=== PATIENT | female | born 1955 | race Two or more races ===

== ENCOUNTER 2022-08-28 13:57 | Inpatient (IN) | payer BC, OTHER ==
[~2022-08-28] VITALS: Ht 160 cm; Wt 81.0 kg
[2022-08-28 15:15] VITALS: BP 139/91
[2022-08-28] MEDS ORDERED: GLUCOSE 4GM CHEW TABLET PO PRN (15:40)
[2022-08-28] MEDS ORDERED: MIRALAX *UNIT DOSE* 17GM PACKET PO PRN (15:40)
[2022-08-28] MEDS ORDERED: GLUCAGON INJ 1MG VIAL SC PRN (15:40)
[2022-08-28] MEDS ORDERED: DEXTROSE 50% 50 ML SYRINGE IV PRN (15:40)
[2022-08-28] MEDS ORDERED: ACETAMINOPHEN TAB 650MG DOSE (2X325MG) PO PRN (15:40)
[2022-08-28] MEDS ORDERED: ONDANSETRON 4MG ORAL DISINTEGRATING TAB SL PRN (15:40)
[2022-08-28] MEDS ORDERED: INSULIN LISPRO (NovoLOG) PER UNIT SC SCH (17:30)
[2022-08-28 20:00] VITALS: BP 130/84
[2022-08-28] MEDS ORDERED: FLON1SPR NARES (20:19)
[2022-08-28] MEDS ORDERED: DOCU100C16 PO (20:19)
[2022-08-28] MEDS ORDERED: ATOR40TA75 PO (20:19)
[2022-08-28] MEDS ORDERED: CARV6.25 PO (20:19)
[2022-08-28] MEDS ORDERED: DULO30CA9 PO (20:19)
[2022-08-28] MEDS ORDERED: BACL10TA2 PO (20:19)
[2022-08-28] MEDS ORDERED: EZET10TA21 PO (20:19)
[2022-08-28] MEDS ORDERED: GABA-282 PO (20:22)
[2022-08-28] MEDS ORDERED: GLIP5TAB8 PO (20:22)
[2022-08-28] MEDS ORDERED: LORA-622 PO (20:56)
[2022-08-28] MEDS ORDERED: heparin SC (20:56)
[2022-08-28] MEDS ORDERED: HYDR-643 PO (20:56)
[2022-08-28] MEDS ORDERED: INSUHUMDS SC ×2 (20:56→21:02)
[2022-08-28] MEDS ORDERED: INSU100V13 SQ (20:56)
[2022-08-28] MEDS ORDERED: VIMP100T PO (21:02)
[2022-08-28] MEDS ORDERED: KEPP1TAB PO (21:02)
[2022-08-28] MEDS ORDERED: SENN-80 PO (21:07)
[2022-08-28] MEDS ORDERED: EQL50TAB2 PO (21:07)
[2022-08-28] MEDS ORDERED: COCONUT OIL PO (21:07)
[2022-08-28] MEDS ORDERED: MIRA3350 PO (21:07)
[2022-08-28] MEDS ORDERED: OMEG10005 PO (21:07)
[2022-08-28] MEDS ORDERED: ONDA-83 PO (21:07)
[2022-08-28] MEDS ORDERED: med rec comment (21:09)
[2022-08-28] MEDS ORDERED: HOME MED LIST COMPLETE! XX SCH (21:10)
[2022-08-28] MEDS: LEVEMIR (INSULIN DETEMIR) 1 UNITS/0.01ML SC SCH (22:00)
[2022-08-28] MEDS: HEPARIN SOD (PORCINE) 5000UNITS/ML 1ML VIAL/SYRINGE SQ SCH (22:00)
[2022-08-28] MEDS: levETIRAcetam 250MG TABLET (KEPPRA) PO SCH (22:01)
[2022-08-28] MEDS: GABAPENTIN 300 MG CAP PO SCH (22:01)
[2022-08-28] MEDS: LACOSAMIDE 50 MG TAB (VIMPAT) PO SCH (22:02)
[2022-08-28] MEDS: DULoxetine 30MG CAPSULE (CYMBALTA) PO SCH (22:02)
[2022-08-28] MEDS: CARVedilol 6.25 MG TAB PO SCH (22:02)
[2022-08-28] MEDS: FLUTICASONE PROP 0.05% NASAL SPRAY 16 GM (FLONASE) NARES SCH (22:03)
[2022-08-28] MEDS: SENNA 8.6 MG TAB (SENOKOT) PO SCH (22:03)
[2022-08-28] MEDS: ATORVASTATIN 20 MG TAB PO SCH (22:03)
[2022-08-28] MEDS: DOCUSATE SODIUM 100MG CAPSULE PO SCH (22:03)
[2022-08-28] MEDS: INSULIN LISPRO (NovoLOG) PER UNIT SC SCH (22:03)
[2022-08-29] MEDS: HEPARIN SOD (PORCINE) 5000UNITS/ML 1ML VIAL/SYRINGE SQ SCH ×3 (05:45→21:49)
[2022-08-29] MEDS: glipiZIDE (GLUCOTROL) 5 MG TAB PO SCH (08:19)
[2022-08-29] MEDS: INSULIN LISPRO (NovoLOG) PER UNIT SC SCH ×4 (08:19→20:31)
[2022-08-29] MEDS: levETIRAcetam 250MG TABLET (KEPPRA) PO SCH ×2 (08:20→20:41)
[2022-08-29] MEDS: GABAPENTIN 300 MG CAP PO SCH ×3 (08:20→20:41)
[2022-08-29] MEDS: LACOSAMIDE 50 MG TAB (VIMPAT) PO SCH ×2 (08:21→20:41)
[2022-08-29] MEDS: CARVedilol 6.25 MG TAB PO SCH ×2 (08:21→20:42)
[2022-08-29] MEDS: DOCUSATE SODIUM 100MG CAPSULE PO SCH ×2 (08:21→20:40)
[2022-08-29] MEDS: FLUTICASONE PROP 0.05% NASAL SPRAY 16 GM (FLONASE) NARES SCH ×2 (08:22→20:43)
[2022-08-29 10:48] LABS: BASO # 0.1 10^3/uL (0.0-0.2); BASO % 0.4 % (0.0-1.0); EOS # 0.3 10^3/uL (0.0-0.5); EOS % 1.9 % (0.0-3.0); HEMATOCRIT 42.8 % (36.0-47.0); HEMOGLOBIN 13.5 g/dl (12.0-15.5); LYMPH # 3.3 10^3/uL (1.5-5.0); LYMPH % 23.5 % (24.0-44.0); MEAN CORPUSCULAR HEMOGLOBIN 29.3 pg (27.0-33.0); MEAN CORPUSCULAR HGB CONC 31.5 g/dl (32.0-36.5); MONO # 1.1 10^3/uL (0.0-0.8); MONO % 7.7 % (2.0-8.0); NEUTROPHILS # 9.1 10^3/uL (1.5-8.5); NEUTROPHILS % 65.9 % (36.0-66.0); PLATELET COUNT, AUTOMATED 413 10^3/uL (150-450); WHITE BLOOD COUNT 13.9 10^3/uL (4.0-10.0)
[2022-08-29 11:31] LABS: CALCIUM LEVEL 9.8 MG/DL (8.8-10.2); CREATININE FOR GFR 1.11 MG/DL (0.55-1.30); GLOMERULAR FILTRATION RATE 52.5 (>45); POTASSIUM SERUM 4.7 MEQ/L (3.5-5.1)
[2022-08-29 14:00] VITALS: BP 142/82
[2022-08-29] MEDS: COMBIVENT RESPIMAT 100-20MCG INHALER 4GM INH SCH ×2 (14:00→20:07)
[2022-08-29] MEDS: ACETAMINOPHEN 500 MG TAB PO SCH ×2 (14:33→21:49)
[2022-08-29] MEDS: EZETIMIBE 10MG TABLET (ZETIA) PO SCH (17:38)
[2022-08-29 19:42] VITALS: BP 143/83
[2022-08-29] MEDS: SENNA 8.6 MG TAB (SENOKOT) PO SCH (20:40)
[2022-08-29] MEDS: ATORVASTATIN 20 MG TAB PO SCH (20:40)
[2022-08-29] MEDS: DULoxetine 30MG CAPSULE (CYMBALTA) PO SCH (20:40)
[2022-08-29] MEDS: LEVEMIR (INSULIN DETEMIR) 1 UNITS/0.01ML SC SCH (20:43)
[2022-08-30] MEDS: HEPARIN SOD (PORCINE) 5000UNITS/ML 1ML VIAL/SYRINGE SQ SCH ×3 (05:47→20:55)
[2022-08-30] MEDS: ACETAMINOPHEN 500 MG TAB PO SCH ×3 (05:47→20:53)
[2022-08-30 06:00] VITALS: BP 129/84
[2022-08-30 07:20] LABS: BASO # 0.1 10^3/uL (0.0-0.2); BASO % 0.6 % (0.0-1.0); EOS # 0.3 10^3/uL (0.0-0.5); EOS % 2.6 % (0.0-3.0); HEMATOCRIT 39.9 % (36.0-47.0); HEMOGLOBIN 12.8 g/dl (12.0-15.5); LYMPH # 3.5 10^3/uL (1.5-5.0); LYMPH % 28.9 % (24.0-44.0); MEAN CORPUSCULAR HEMOGLOBIN 29.6 pg (27.0-33.0); MEAN CORPUSCULAR HGB CONC 32.1 g/dl (32.0-36.5); MEAN CORPUSCULAR VOLUME 92.1 fl (80.0-96.0); MONO # 1.1 10^3/uL (0.0-0.8); NEUTROPHILS % 58.1 % (36.0-66.0); PLATELET COUNT, AUTOMATED 324 10^3/uL (150-450); RED BLOOD COUNT 4.33 10^6/uL (4.00-5.40); WHITE BLOOD COUNT 12.1 10^3/uL (4.0-10.0)
[2022-08-30] MEDS: COMBIVENT RESPIMAT 100-20MCG INHALER 4GM INH SCH ×3 (08:22→20:01)
[2022-08-30] MEDS: levETIRAcetam 250MG TABLET (KEPPRA) PO SCH ×2 (08:58→20:53)
[2022-08-30] MEDS: INSULIN LISPRO (NovoLOG) PER UNIT SC SCH ×4 (08:58→20:54)
[2022-08-30] MEDS: GABAPENTIN 300 MG CAP PO SCH ×3 (08:59→20:53)
[2022-08-30] MEDS: LACOSAMIDE 50 MG TAB (VIMPAT) PO SCH ×2 (08:59→20:50)
[2022-08-30] MEDS: CARVedilol 6.25 MG TAB PO SCH ×2 (08:59→20:51)
[2022-08-30] MEDS: glipiZIDE (GLUCOTROL) 5 MG TAB PO SCH (09:00)
[2022-08-30] MEDS: DOCUSATE SODIUM 100MG CAPSULE PO SCH ×2 (09:00→20:53)
[2022-08-30] MEDS: FLUTICASONE PROP 0.05% NASAL SPRAY 16 GM (FLONASE) NARES SCH ×2 (09:00→20:54)
[2022-08-30 14:00] VITALS: BP 155/93
[2022-08-30] MEDS: EZETIMIBE 10MG TABLET (ZETIA) PO SCH (18:01)
[2022-08-30 20:00] VITALS: BP 126/70
[2022-08-30] MEDS: DULoxetine 30MG CAPSULE (CYMBALTA) PO SCH (20:50)
[2022-08-30] MEDS: SENNA 8.6 MG TAB (SENOKOT) PO SCH (20:52)
[2022-08-30] MEDS: ATORVASTATIN 20 MG TAB PO SCH (20:53)
[2022-08-30] MEDS: LEVEMIR (INSULIN DETEMIR) 1 UNITS/0.01ML SC SCH (20:54)
[2022-08-31] MEDS: ACETAMINOPHEN 500 MG TAB PO SCH ×3 (05:16→21:57)
[2022-08-31] MEDS: HEPARIN SOD (PORCINE) 5000UNITS/ML 1ML VIAL/SYRINGE SQ SCH ×3 (05:16→21:57)
[2022-08-31 06:00] VITALS: BP 138/75
[2022-08-31] MEDS: COMBIVENT RESPIMAT 100-20MCG INHALER 4GM INH SCH ×3 (08:02→20:00)
[2022-08-31] MEDS: INSULIN LISPRO (NovoLOG) PER UNIT SC SCH ×4 (08:38→21:00)
[2022-08-31] MEDS: glipiZIDE (GLUCOTROL) 5 MG TAB PO SCH (08:39)
[2022-08-31] MEDS: GABAPENTIN 300 MG CAP PO SCH ×3 (08:39→21:58)
[2022-08-31] MEDS: LACOSAMIDE 50 MG TAB (VIMPAT) PO SCH ×2 (08:39→21:58)
[2022-08-31] MEDS: DOCUSATE SODIUM 100MG CAPSULE PO SCH ×3 (08:39→21:58)
[2022-08-31] MEDS: FLUTICASONE PROP 0.05% NASAL SPRAY 16 GM (FLONASE) NARES SCH ×2 (08:39→21:59)
[2022-08-31] MEDS: CARVedilol 6.25 MG TAB PO SCH ×2 (08:39→21:58)
[2022-08-31] MEDS: levETIRAcetam 250MG TABLET (KEPPRA) PO SCH ×2 (08:39→21:57)
[2022-08-31 14:00] VITALS: BP 131/78
[2022-08-31] MEDS: EZETIMIBE 10MG TABLET (ZETIA) PO SCH (17:00)
[2022-08-31 20:00] VITALS: BP 141/72
[2022-08-31] MEDS: SENNA 8.6 MG TAB (SENOKOT) PO SCH ×2 (21:00→21:58)
[2022-08-31] MEDS: LEVEMIR (INSULIN DETEMIR) 1 UNITS/0.01ML SC SCH (21:56)
[2022-08-31] MEDS: ATORVASTATIN 20 MG TAB PO SCH (21:58)
[2022-08-31] MEDS: DULoxetine 30MG CAPSULE (CYMBALTA) PO SCH (21:59)
[2022-09-01 06:00] VITALS: BP 138/84
[2022-09-01] MEDS: ACETAMINOPHEN 500 MG TAB PO SCH ×3 (06:10→21:22)
[2022-09-01] MEDS: HEPARIN SOD (PORCINE) 5000UNITS/ML 1ML VIAL/SYRINGE SQ SCH ×3 (06:10→21:20)
[2022-09-01 07:08] LABS: BASO # 0.1 10^3/uL (0.0-0.2); BASO % 0.7 % (0.0-1.0); EOS # 0.4 10^3/uL (0.0-0.5); EOS % 3.2 % (0.0-3.0); HEMATOCRIT 40.6 % (36.0-47.0); HEMOGLOBIN 13.3 g/dl (12.0-15.5); LYMPH # 3.1 10^3/uL (1.5-5.0); MEAN CORPUSCULAR HEMOGLOBIN 30.1 pg (27.0-33.0); MEAN CORPUSCULAR HGB CONC 32.8 g/dl (32.0-36.5); MEAN CORPUSCULAR VOLUME 91.9 fl (80.0-96.0); MONO # 0.9 10^3/uL (0.0-0.8); MONO % 8.3 % (2.0-8.0); NEUTROPHILS # 6.8 10^3/uL (1.5-8.5); NEUTROPHILS % 60.1 % (36.0-66.0); PLATELET COUNT, AUTOMATED 280 10^3/uL (150-450); RED BLOOD COUNT 4.42 10^6/uL (4.00-5.40); WHITE BLOOD COUNT 11.3 10^3/uL (4.0-10.0)
[2022-09-01] MEDS: COMBIVENT RESPIMAT 100-20MCG INHALER 4GM INH SCH ×3 (07:29→18:51)
[2022-09-01 07:45] LABS: CALCIUM LEVEL 9.2 MG/DL (8.8-10.2); CREATININE FOR GFR 1.05 MG/DL (0.55-1.30); POTASSIUM SERUM 4.7 MEQ/L (3.5-5.1)
[2022-09-01] MEDS: LACOSAMIDE 50 MG TAB (VIMPAT) PO SCH ×2 (08:36→21:20)
[2022-09-01] MEDS: GABAPENTIN 300 MG CAP PO SCH ×3 (08:37→21:20)
[2022-09-01] MEDS: levETIRAcetam 250MG TABLET (KEPPRA) PO SCH ×2 (08:37→21:21)
[2022-09-01] MEDS: DOCUSATE SODIUM 100MG CAPSULE PO SCH ×2 (08:38→21:37)
[2022-09-01] MEDS: glipiZIDE (GLUCOTROL) 5 MG TAB PO SCH (08:38)
[2022-09-01] MEDS: INSULIN LISPRO (NovoLOG) PER UNIT SC SCH ×4 (08:38→21:00)
[2022-09-01] MEDS: CARVedilol 6.25 MG TAB PO SCH ×2 (08:38→21:21)
[2022-09-01] MEDS: FLUTICASONE PROP 0.05% NASAL SPRAY 16 GM (FLONASE) NARES SCH ×2 (08:39→21:22)
[2022-09-01 14:44] VITALS: BP 140/62
[2022-09-01] MEDS: EZETIMIBE 10MG TABLET (ZETIA) PO SCH (17:27)
[2022-09-01 20:00] VITALS: BP 147/81
[2022-09-01] MEDS: LEVEMIR (INSULIN DETEMIR) 1 UNITS/0.01ML SC SCH (21:19)
[2022-09-01] MEDS: ATORVASTATIN 20 MG TAB PO SCH (21:20)
[2022-09-01] MEDS: DULoxetine 30MG CAPSULE (CYMBALTA) PO SCH (21:21)
[2022-09-01] MEDS: SENNA 8.6 MG TAB (SENOKOT) PO SCH (21:37)
[2022-09-02] MEDS: ACETAMINOPHEN 500 MG TAB PO SCH ×3 (05:52→21:24)
[2022-09-02] MEDS: HEPARIN SOD (PORCINE) 5000UNITS/ML 1ML VIAL/SYRINGE SQ SCH ×3 (05:52→21:24)
[2022-09-02 06:00] VITALS: BP 146/86
[2022-09-02] MEDS: INSULIN LISPRO (NovoLOG) PER UNIT SC SCH ×4 (08:28→21:00)
[2022-09-02] MEDS: DOCUSATE SODIUM 100MG CAPSULE PO SCH ×2 (08:28→20:43)
[2022-09-02] MEDS: glipiZIDE (GLUCOTROL) 5 MG TAB PO SCH (08:28)
[2022-09-02] MEDS: CARVedilol 6.25 MG TAB PO SCH ×2 (08:28→20:43)
[2022-09-02] MEDS: GABAPENTIN 300 MG CAP PO SCH ×3 (08:28→20:43)
[2022-09-02] MEDS: LACOSAMIDE 50 MG TAB (VIMPAT) PO SCH ×2 (08:29→20:43)
[2022-09-02] MEDS: levETIRAcetam 250MG TABLET (KEPPRA) PO SCH ×2 (08:29→20:44)
[2022-09-02] MEDS: FLUTICASONE PROP 0.05% NASAL SPRAY 16 GM (FLONASE) NARES SCH ×2 (08:29→20:44)
[2022-09-02] MEDS: COMBIVENT RESPIMAT 100-20MCG INHALER 4GM INH SCH ×3 (08:32→20:00)
[2022-09-02] MEDS: amLODIPine 5 MG TAB PO SCH (11:32)
[2022-09-02 14:00] VITALS: BP 133/70
[2022-09-02] MEDS: EZETIMIBE 10MG TABLET (ZETIA) PO SCH (17:13)
[2022-09-02 20:00] VITALS: BP 123/77
[2022-09-02] MEDS: LEVEMIR (INSULIN DETEMIR) 1 UNITS/0.01ML SC SCH (20:42)
[2022-09-02] MEDS: ATORVASTATIN 20 MG TAB PO SCH (20:43)
[2022-09-02] MEDS: DULoxetine 30MG CAPSULE (CYMBALTA) PO SCH (20:43)
[2022-09-02] MEDS: SENNA 8.6 MG TAB (SENOKOT) PO SCH (20:43)
[2022-09-03 05:32] VITALS: BP 135/76
[2022-09-03] MEDS: ACETAMINOPHEN 500 MG TAB PO SCH ×3 (05:41→21:11)
[2022-09-03] MEDS: HEPARIN SOD (PORCINE) 5000UNITS/ML 1ML VIAL/SYRINGE SQ SCH ×3 (05:42→21:10)
[2022-09-03 06:33] LABS: BASO # 0.1 10^3/uL (0.0-0.2); BASO % 0.8 % (0.0-1.0); EOS # 0.3 10^3/uL (0.0-0.5); EOS % 3.2 % (0.0-3.0); HEMATOCRIT 40.3 % (36.0-47.0); HEMOGLOBIN 13.2 g/dl (12.0-15.5); LYMPH # 2.9 10^3/uL (1.5-5.0); LYMPH % 27.7 % (24.0-44.0); MEAN CORPUSCULAR HEMOGLOBIN 30.1 pg (27.0-33.0); MEAN CORPUSCULAR HGB CONC 32.8 g/dl (32.0-36.5); MEAN CORPUSCULAR VOLUME 91.8 fl (80.0-96.0); MONO # 0.9 10^3/uL (0.0-0.8); MONO % 8.1 % (2.0-8.0); NEUTROPHILS # 6.2 10^3/uL (1.5-8.5); NEUTROPHILS % 59.5 % (36.0-66.0); PLATELET COUNT, AUTOMATED 224 10^3/uL (150-450); RED BLOOD COUNT 4.39 10^6/uL (4.00-5.40); WHITE BLOOD COUNT 10.5 10^3/uL (4.0-10.0)
[2022-09-03 07:11] LABS: CALCIUM LEVEL 9.1 MG/DL (8.8-10.2); CREATININE FOR GFR 1.11 MG/DL (0.55-1.30); GLOMERULAR FILTRATION RATE 52.5 (>45); POTASSIUM SERUM 4.8 MEQ/L (3.5-5.1)
[2022-09-03] MEDS: COMBIVENT RESPIMAT 100-20MCG INHALER 4GM INH SCH ×3 (08:00→19:27)
[2022-09-03] MEDS: amLODIPine 5 MG TAB PO SCH (08:39)
[2022-09-03] MEDS: INSULIN LISPRO (NovoLOG) PER UNIT SC SCH ×4 (08:39→21:00)
[2022-09-03] MEDS: DOCUSATE SODIUM 100MG CAPSULE PO SCH ×2 (08:39→21:10)
[2022-09-03] MEDS: glipiZIDE (GLUCOTROL) 5 MG TAB PO SCH (08:39)
[2022-09-03] MEDS: levETIRAcetam 250MG TABLET (KEPPRA) PO SCH ×2 (08:39→21:09)
[2022-09-03] MEDS: CARVedilol 6.25 MG TAB PO SCH ×2 (08:39→21:11)
[2022-09-03] MEDS: GABAPENTIN 300 MG CAP PO SCH ×3 (08:39→21:11)
[2022-09-03] MEDS: LACOSAMIDE 50 MG TAB (VIMPAT) PO SCH ×2 (08:39→21:11)
[2022-09-03] MEDS: FLUTICASONE PROP 0.05% NASAL SPRAY 16 GM (FLONASE) NARES SCH ×2 (08:40→21:12)
[2022-09-03 14:00] VITALS: BP 145/80
[2022-09-03] MEDS: EZETIMIBE 10MG TABLET (ZETIA) PO SCH (17:31)
[2022-09-03 20:00] VITALS: BP 144/82
[2022-09-03] MEDS: ATORVASTATIN 20 MG TAB PO SCH (21:10)
[2022-09-03] MEDS: SENNA 8.6 MG TAB (SENOKOT) PO SCH (21:10)
[2022-09-03] MEDS: LEVEMIR (INSULIN DETEMIR) 1 UNITS/0.01ML SC SCH (21:10)
[2022-09-03] MEDS: DULoxetine 30MG CAPSULE (CYMBALTA) PO SCH (21:11)
[2022-09-04] MEDS: HEPARIN SOD (PORCINE) 5000UNITS/ML 1ML VIAL/SYRINGE SQ SCH (05:22)
[2022-09-04] MEDS: ACETAMINOPHEN 500 MG TAB PO SCH (05:22)
[2022-09-04 06:02] VITALS: BP 128/78
[2022-09-04] MEDS: DOCUSATE SODIUM 100MG CAPSULE PO SCH (07:31)
[2022-09-04] MEDS: levETIRAcetam 250MG TABLET (KEPPRA) PO SCH (07:31)
[2022-09-04] MEDS: CARVedilol 6.25 MG TAB PO SCH (07:32)
[2022-09-04] MEDS: GABAPENTIN 300 MG CAP PO SCH (07:32)
[2022-09-04] MEDS: glipiZIDE (GLUCOTROL) 5 MG TAB PO SCH (07:32)
[2022-09-04] MEDS: INSULIN LISPRO (NovoLOG) PER UNIT SC SCH ×2 (07:33→11:45)
[2022-09-04 07:34] VITALS: BP 128/78
[2022-09-04] MEDS: amLODIPine 5 MG TAB PO SCH (07:34)
[2022-09-04] MEDS: LACOSAMIDE 50 MG TAB (VIMPAT) PO SCH (07:34)
[2022-09-04] MEDS: FLUTICASONE PROP 0.05% NASAL SPRAY 16 GM (FLONASE) NARES SCH (07:35)
[2022-09-04] MEDS: COMBIVENT RESPIMAT 100-20MCG INHALER 4GM INH SCH (08:06)
[2022-09-04] MEDS ORDERED: GABA-282 PO (10:03)
[2022-09-04] MEDS ORDERED: INSU100V13 SQ (10:03)
[2022-09-04] MEDS ORDERED: VIMP100T PO (10:03)
[2022-09-04] MEDS ORDERED: INSUHUMDS SC (10:03)
[2022-09-04] MEDS ORDERED: GLIP5TAB8 PO (10:03)
[2022-09-04] MEDS ORDERED: EZET10TA21 PO (10:03)
[2022-09-04] MEDS ORDERED: ATOR40TA75 PO (10:03)
[2022-09-04] MEDS ORDERED: AMLO1TAB24 PO (10:03)
[2022-09-04] MEDS ORDERED: DULO30CA9 PO (10:03)
[2022-09-04] MEDS ORDERED: KEPP1TAB PO (10:03)
[2022-09-04] MEDS ORDERED: COMBAER6 INH (10:03)
[2022-09-04] MEDS ORDERED: CARV6.25 PO (10:03)
[2022-09-06] MEDS ORDERED: VIMP200T PO ×2 (09:49→09:54)
== END 2022-09-04 12:15 | disposition home or self-care (01) | DRG 862 ==
LOC: M PM&R 15:10 → EDBD 15:10
PROVIDERS: ADMIT Physical Medicine & Rehabilitation; ATTEND Physical Medicine & Rehabilitation
DX: S06.5X0D Traumatic subdural hemorrhage without loss of consciousness, subsequent encounter (principal); G81.91 Hemiplegia, unspecified affecting right dominant side; R47.01 Aphasia; G40.009 Localization-related (focal) (partial) idiopathic epilepsy and epileptic syndromes with seizures of localized onset, not intractable, without status epilepticus; J44.9 Chronic obstructive pulmonary disease, unspecified; R26.89 Other abnormalities of gait and mobility; Z74.09 Other reduced mobility; E11.40 Type 2 diabetes mellitus with diabetic neuropathy, unspecified; Z74.1 Need for assistance with personal care; Z79.4 Long term (current) use of insulin; Z79.899 Other long term (current) drug therapy; I10 Essential (primary) hypertension; E78.5 Hyperlipidemia, unspecified; S62.607D Fracture of unspecified phalanx of left little finger, subsequent encounter for fracture with routine healing; S92.401D Displaced unspecified fracture of right great toe, subsequent encounter for fracture with routine healing; D72.829 Elevated white blood cell count, unspecified